=== PATIENT | female | born 1995 | race African-American/Black ===

== ENCOUNTER 2020-10-18 12:09 | Emergency (ER) | payer OTHER ==
[~2020-10-18] VITALS: Ht 165.1 cm; Wt 90.5 kg
[2020-10-18 12:19] VITALS: TEMP 98
[2020-10-18 13:07] LABS: STREP SCREEN NEGATIVE
[2020-10-18 13:45] VITALS: BP 131/76; PULSE 60
== END 2020-10-18 13:45 | disposition home or self-care (01) ==
LOC: COL.ER 12:09
PROVIDERS: Physician Assistant
DX: J02.9 Acute pharyngitis, unspecified (principal); Z87.891 Personal history of nicotine dependence

== ENCOUNTER 2020-11-07 13:33 | Emergency (ER) | payer OTHER ==
[~2020-11-07] VITALS: Ht 165.1 cm; Wt 90.5 kg
[2020-11-07 13:44] VITALS: BP 118/89; PULSE 98; TEMP 97.3
== END 2020-11-07 17:05 | disposition left against medical advice (07) ==
LOC: COL.ER 13:33
DX: S99.911A Unspecified injury of right ankle, initial encounter (principal); W00.0XXA Fall on same level due to ice and snow, initial encounter